=== PATIENT | female | born 1980 | race Caucasian/White ===

== ENCOUNTER 2016-09-10 12:15 | Emergency (ER) | payer OTHER ==
--- NOTE | ~2016-09-10 | CT77 ---
[facility] A Service [facility] RADIOLOGY TEXT RESULTS PATIENT: YING MASON LOCATION: [facility] : [birth year] UNIT #: [id number] AGE: [address]: Cameron Washburn SEX: F ORDER DR: [id number] [facility] [address] [place], [place] [address] [id number] MR#: [id number] #: [id number] NAME: YING MASON : 1980 SEX: F STUDY DATE/TIME: 09/10/2016 15:59 UNIT: [facility] ROOM: STUDY DESCRIPTION: CT IAC, Sella, Temporal Bone W Attending Physician: Cameron Washburn Ordering Physician: Cameron Washburn Primary Care Physician: Bryanna Primary Care Physician MEDICAL IMAGING REPORT This report is preliminary unless electronic signature is present EXAM Temporal bone CT without contrast 09/10/2016 PROCEDURE Axial unenhanced temporal bone CT with multiplanar reformats. This CT exam was performed with one or more of the following radiation dose reduction techniques: automatic exposure control, adjustment of mA and/or kV according to patient size, and iterative reconstruction. HISTORY Headache, dizziness and left ear swelling and left ear pain for 1 week. FINDINGS There is extracranial soft tissue swelling involving the external ear and there is opacification of the external auditory canal. There is fluid in the mastoid air cells and middle ear, but no labyrinthine or tegmen dehiscence or other evidence of bone erosion or destruction. The right middle ear and mastoids are normal though there is some slight TMJ degenerative change. Right labyrinth is normal and the left labyrinth is normal. IMPRESSION There is no bone erosion or destruction. There is fluid in the left middle ear and in the mastoid antrum, and fluid surrounds the ossicles but there is no bone erosion or destruction. There is extracranial soft tissue swelling occluding the external auditory canal, but no evidence of abscess on these unenhanced images. The right temporal bone is normal. Dictated by... Dandre Pablo M.D. [facility] A Service [facility] RADIOLOGY TEXT RESULTS PATIENT: YING MASON LOCATION: [facility] : 82 UNIT #: [id number] AGE: [address]: Cameron Washburn SEX: F ORDER DR: THIS IS AN ELECTRONICALLY VERIFIED REPORT Dandre Pablo M.D. at 09/15/2016 3:28 PM Nabila TD: 09/10/2016 17:40 JOB #: [id number] MEDICAL IMAGING REPORT Page 1 of 1 COPY
== END 2016-09-10 17:09 | disposition home or self-care (01) ==
LOC: CFTX 12:15 → CED 12:15 → CFTX 14:07
DX: H66.92 Otitis media, unspecified, left ear (principal); F17.210 Nicotine dependence, cigarettes, uncomplicated; I10 Essential (primary) hypertension
CPT/HCPCS: 70480; 99284